=== PATIENT | female | born 1990 | race Caucasian/White ===

== ENCOUNTER 2019-01-15 16:58 | Emergency (ER) | payer OTHER ==
[~2019-01-15] VITALS: Ht 170.2 cm; Wt 65.9 kg
[2019-01-15] MEDS ORDERED: PLAQ200T4 PO (17:05)
--- NOTE | 2019-01-15 18:00 | REP ---
Clinical: Trauma. Technique: AP, lateral, bilateral oblique and sunrise views right knee. Findings: The osseous structures and joint spaces are intact and normal. There is no evidence for acute fracture or dislocation. No joint effusion is appreciated. Surrounding soft tissues are unremarkable. No subcutaneous emphysema or radiodense foreign body. Impression: No acute fracture or dislocation. Electronically Signed by Byron Hess MD 01/15/2019 05:51 P
[2019-01-15 18:10] VITALS: BP 109/60
== END 2019-01-15 18:20 | disposition home or self-care (01) ==
LOC: M ED 16:58
DX: S83.91XA Sprain of unspecified site of right knee, initial encounter (principal); S80.01XA Contusion of right knee, initial encounter; V86.96XA Unspecified occupant of dirt bike or motor/cross bike injured in nontraffic accident, initial encounter; Y92.89 Other specified places as the place of occurrence of the external cause; M32.9 Systemic lupus erythematosus, unspecified; Z79.899 Other long term (current) drug therapy

== ENCOUNTER → 2019-12-26 | Outpatient (CLI) | payer OTHER ==
[~2019-12-26] MED LIST: PLAQ200T4 PO
--- NOTE | 2019-12-27 03:43 | REP ---
KNEE: REASON: Pain after trauma. COMPARISON: 01/15/2019 FINDINGS: The compartments are symmetric and relatively well maintained. There is no acute fracture or destructive osseous lesion. Electronically Signed by Hardik Moralez DO 12/27/2019 11:12 A
== END ==
LOC: M LRY 16:37
PROVIDERS: ATTEND Nurse Practitioner Family
DX: S89.91XA Unspecified injury of right lower leg, initial encounter (principal); X58.XXXA Exposure to other specified factors, initial encounter; Y92.9 Unspecified place or not applicable

== ENCOUNTER → 2022-03-28 | Outpatient (REF) | payer OTHER | LOC: M LAB REF 16:19 | PROVIDERS: ATTEND Student in an Organized Health Care Education/Training Program | DX: R30.0 Dysuria (principal) ==